=== PATIENT | male | born 1955 | race Caucasian/White ===

== ENCOUNTER → 2016-09-01 | Day surgery (SDC) | payer OTHER ==
[2016-09-01 08:13] LABS: HCT 43.8 % (42.0-52.0); HGB 15.4 g/dl (13.2-18.0); MCH 32.2 pg (25.0-31.0); MCHC 35.2 g/dL (32.0-36.0); MCV 91.6 fL (78.0-100.0); MPV 10.3 fL (6.0-9.5); RBC 4.78 M/uL (4.70-6.00); RDW 12.7 % (11.5-14.0); WBC 7.4 K/uL (4.0-10.5)
[2016-09-01 08:33] LABS: ALBUMIN 4.3 g/dL (3.5-5.0); BILIRUBIN - TOTAL 0.7 mg/dL (0.1-1.0); GLOBULIN (CALCULATION) 2.9 g/dL (2.2-4.2); POTASSIUM 4.1 mmol/L (3.5-5.1); TOTAL PROTEIN 7.2 g/dL (6.4-8.3)
== END | disposition home or self-care (01) ==
LOC: FAS 07:43
PROVIDERS: Surgery
DX: Z12.11 Encounter for screening for malignant neoplasm of colon (principal); I10 Essential (primary) hypertension; I25.10 Atherosclerotic heart disease of native coronary artery without angina pectoris; E78.5 Hyperlipidemia, unspecified; F17.210 Nicotine dependence, cigarettes, uncomplicated; Z90.49 Acquired absence of other specified parts of digestive tract; Z98.890 Other specified postprocedural states; Z82.49 Family history of ischemic heart disease and other diseases of the circulatory system; Z80.0 Family history of malignant neoplasm of digestive organs; Z79.82 Long term (current) use of aspirin
CPT/HCPCS: 36415; 80053; J2704